=== PATIENT | male | born 1960 | race Caucasian/White ===

== ENCOUNTER 2020-02-03 21:47 | Emergency (ER) | payer SELFPAY ==
[~2020-02-03] VITALS: Ht 175.3 cm; Wt 79.0 kg
[2020-02-03] MEDS ORDERED: LORazepam 2 MG/ML, 1ML ONE (22:13)
--- NOTE | 2020-02-03 22:21 | NUR ---
THIS IS A 59 YO MALE BIB [facility] FROM HOME FOR POSSIBLE SEIZURE. PATIENT WAS FOUND BY ROOMMATE SITTING SIDWAY IN A CHAIR, GROGGY, AND NOT VERY RESPONSIVE. A&OX2 UPON EMS ARRIVAL AND ARRIVAL TO ED, NO KNOWN HX SEIZURES. ABOUT 20MINS INTO ARRIVAL PATIENT IS NOW A&OX4. [facility] 15. MOVES ALL EXTREMITIES WELL. PERRLA. ALL MONITORING IN PLACE, SINUS TACHYCARDIA NOTED ON MONITOR. PIV PLACED BY JORDANA, IVF STARTED, MEDICATED PER EMAR. TOLERATED WELL. BROTHER IN ROOM AT THIS TIME, AND DENIES ANY MEDICAL HX OF PATIENT WELL. CALL LIGHT IN REACH
[2020-02-03 22:30] LABS: MEAN CORPUSCULAR HEMOGLOBIN 32.2 pg (27.5-34.5); MEAN CORPUSCULAR HGB CONC 33.4 g/dL (33.2-36.2); MEAN CORPUSCULAR VOLUME 96.3 fL (81-97); MEAN PLATELET VOLUME 8.3 fL (7.4-10.4); PLATELET COUNT 153 x10^3/uL (130-400); RED BLOOD COUNT 4.65 x10^6/uL (4.38-5.82); RED CELL DISTRIBUTION WIDTH 14.4 % (9.4-14.8)
[2020-02-03] MEDS ORDERED: SODIUM CHLORIDE 0.9% 1,000ML IVBOLUS ONE (22:30)
[2020-02-03] MEDS ORDERED: SODIUM CHLORIDE FLUSH 10ML SYR IVF ONE (22:30)
[2020-02-03] MEDS ORDERED: LORazepam 2 MG/ML, 1ML IVPush ONE (22:30)
[2020-02-03 22:44] LABS: MD YES
[2020-02-03 22:48] LABS: BASOS#(MANUAL) 0.18 x10^3/uL (0-0.1); BASOS% (MANUAL) 2 % (0-1); EOS#(MANUAL) 0.27 x10^3/uL (0.0-0.4); EOS% (MANUAL) 3 % (1-7); LYMPH#(MANUAL) 1.35 x10^3/uL (1-3.4); LYMPHS% (MANUAL) 15 % (22-44); MONOS#(MANUAL) 1.08 x10^3/uL (0.3-2.7); MONOS% (MANUAL) 12 % (2-9); REACTIVE LYMPHS # (MANUAL) 0.18 x10^3/uL (0-0); REACTIVE LYMPHS % (MANUAL) 2 % (0-0); SEG#(MANUAL) 5.94 x10^3/uL (1.8-6.8); SEGS% (MANUAL) 66 % (42-75)
[2020-02-03 22:49] LABS: ALBUMIN 3.1 g/dL (3.4-5.0); CALCIUM 8.7 mg/dL (8.5-10.1); CREATININE 0.82 mg/dL (0.7-1.3)
[2020-02-03 22:50] LABS: ANISOCYTOSIS 1+
[2020-02-03 22:51] LABS: <PLATELET ESTIMATE> ADEQUATE; LARGE PLATELETS 1+
[2020-02-03 22:57] LABS: ALKALINE PHOSPHATASE 107 U/L (45-117); ANION GAP 13 mmol/L (5-15); CHLORIDE 97 mmol/L (98-107); TOTAL PROTEIN 6.5 g/dL (6.4-8.2); TROPONIN I < 0.015 ng/mL (0.000-0.045)
[2020-02-03 23:10] VITALS: BP 114/90
[2020-02-03 23:16] LABS: ALANINE AMINOTRANSFERASE 93 U/L (12-78); BILIRUBIN,TOTAL 3.3 mg/dL (0.2-1.0)
--- NOTE | 2020-02-03 23:29 | NUR ---
PATIENT BACK FROM CT, ALL MONITORING IN PLACE, VSS, NADN AT THIS TIME. CALL LIGHT IN REACH
[2020-02-03] MEDS ORDERED: POTASSIUM CHLORIDE 20 MEQ TAB.ER.PRT PO ONE (23:30)
--- NOTE | 2020-02-03 23:36 | NUR ---
UA COLLECTED AND SENT
[2020-02-03] MEDS ORDERED: POTASSIUM CHLORIDE 20 MEQ TAB.ER.PRT ONE (23:49)
[2020-02-03 23:58] LABS: AMPHETAMINE SCREEN, URINE Negative (Negative); BARBITURATE SCREEN, URINE Negative (Negative); BENZODIAZEPINE SCREEN, URINE Negative (Negative); CANNABINOID SCREEN, URINE Positive (Negative); COCAINE SCREEN, URINE Negative (Negative); METHADONE SCREEN, URINE Negative (Negative); OPIATE SCREEN, URINE Negative (Negative)
--- NOTE | 2020-02-04 | NUR ---
ALL RESULTS BACK, ER PA IN ROOM TI DISCUSS POC
--- NOTE | 2020-02-04 00:22 | NUR ---
Patient given discharge instructions and they have confirmed that they understand the instructions. Brother in room to also hear discharge instructions. Patient wheeled to discharge with brother.
== END 2020-02-04 00:24 | disposition home or self-care (01) ==
LOC: ED 22:40
DX: R41.82 Altered mental status, unspecified (principal); R56.9 Unspecified convulsions; E87.6 Hypokalemia; R94.5 Abnormal results of liver function studies; R00.0 Tachycardia, unspecified
CPT/HCPCS: 36415; 70450; 80053; 80307; 84484; 85025; 93005; 96361; 96374; 99285; J2060; J7030